=== PATIENT | female | born 1995 | race Caucasian/White ===

== ENCOUNTER 2019-04-18 03:30 | Emergency (ER) | payer OTHER ==
[~2019-04-18] VITALS: Ht 157.5 cm; Wt 56.9 kg
[2019-04-18 03:37] VITALS: Ht 157.5 cm; Wt 56.9 kg
[2019-04-18 05:42] VITALS: BP 110/74
== END 2019-04-18 05:42 | disposition home or self-care (01) ==
LOC: ED 03:30
DX: N61.0 Mastitis without abscess (principal); T78.1XXA Other adverse food reactions, not elsewhere classified, initial encounter; X58.XXXA Exposure to other specified factors, initial encounter